=== PATIENT | male | born 1980 | race Caucasian/White ===

== ENCOUNTER 2020-03-10 08:16 | Emergency (ER) | payer BC, OTHER ==
[~2020-03-10] VITALS: Ht 157.5 cm; Wt 82.7 kg
[2020-03-10] MEDS ORDERED: NS 1,000 ML IV ONE (09:00)
[2020-03-10] MEDS ORDERED: KETOROLAC 30 MG/ML 1ML VIAL IV ONE (09:00)
[2020-03-10] MEDS ORDERED: ONDANSETRON 4MG/2ML VIAL IV ONE (09:00)
[2020-03-10 09:05] LABS: BASO # 0.1 10^3/uL (0.0-0.2); EOS # 0.2 10^3/uL (0.0-0.5); HEMATOCRIT 46.6 % (42.0-52.0); HEMOGLOBIN 15.3 g/dl (13.5-17.5); LYMPH # 2.4 10^3/uL (1.5-5.0); LYMPH % 33.7 % (24.0-44.0); MEAN CORPUSCULAR HEMOGLOBIN 28.2 pg (27.0-33.0); MEAN CORPUSCULAR HGB CONC 32.8 g/dl (32.0-36.5); MONO # 0.5 10^3/uL (0.0-0.8); MONO % 6.8 % (0.0-5.0); NEUTROPHILS # 3.9 10^3/uL (1.5-8.5); NEUTROPHILS % 54.3 % (36.0-66.0); PLATELET COUNT, AUTOMATED 269 10^3/uL (150-450); RED BLOOD COUNT 5.42 10^6/uL (4.30-6.10); WHITE BLOOD COUNT 7.2 10^3/uL (4.0-10.0)
[2020-03-10 09:33] LABS: ALBUMIN 4.2 GM/DL (3.2-5.2); ALT/SGPT 40 U/L (12-78); BILIRUBIN,DIRECT < 0.1 MG/DL (0.0-0.2); BILIRUBIN,TOTAL 0.3 MG/DL (0.2-1.0); BLOOD UREA NITROGEN 19 MG/DL (7-18); CALCIUM LEVEL 8.9 MG/DL (8.5-10.1); CARBON DIOXIDE LEVEL 26 MEQ/L (21-32); CHLORIDE LEVEL 107 MEQ/L (98-107); CREATININE FOR GFR 1.28 MG/DL (0.70-1.30); GLOMERULAR FILTRATION RATE > 60.0 (>60); GLUCOSE, FASTING 147 MG/DL (70-100); LIPASE 98 U/L (73-393); POTASSIUM SERUM 3.9 MEQ/L (3.5-5.1); SODIUM LEVEL 139 MEQ/L (136-145); TOTAL PROTEIN 7.3 GM/DL (6.4-8.2)
--- NOTE | 2020-03-10 09:38 | REP ---
INDICATION: right flank pain, renal colic. COMPARISON: NONE TECHNIQUE: RENAL STONE PROTOCOL WITH CORONAL AND SAGITTAL RECONSTRUCTIONS. FINDINGS: CT ABDOMEN: THE LUNG BASES ARE CLEAR. THE HEART IS UNREMARKABLE THERE IS NO PERICARDIAL THICKENING OR EFFUSION. SMALL HIATAL HERNIA NOTED. THERE IS MILD FATTY INFILTRATION OF THE LIVER BUT NO GROSS HEPATOMEGALY, SPLENOMEGALY OR FOCAL LESIONS. NO BILIARY DILATATION. GALLBLADDER WITHOUT CALCIFIED STONE OR MASS PANCREAS AND ADRENAL GLANDS ARE NORMAL. THERE ARE MULTIPLE PUNCTATE STONES IN THE KIDNEYS BILATERALLY IN THE 2-4 MM RANGE. NO CYST OR SOLID MASS. THERE IS MILD RIGHT HYDROURETER AND A 3 MM STONE IN THE DISTAL URETER ABOUT 2 CM ABOVE THE UVJ. THERE IS A NEARBY PELVIC PHLEBOLITH WHICH IS SMALLER. NO LEFT HYDRONEPHROSIS, HYDROURETER OR URETERAL STONE. SMALL BOWEL LOOPS AND COLON ARE UNREMARKABLE. NO PERFORATION OR FREE AIR IN THE ABDOMEN OR PELVIS. I SEE NO ASCITES. BONE WINDOWS SHOW THE LUMBAR AND LOWER THORACIC SPINE, VISUALIZED RIBS AND POSTERIOR ELEMENTS INTACT. CT PELVIS: THE BONY SACRUM, PELVIS AND HIPS ARE WITHOUT ACUTE FINDING. THE BLADDER HAS BEEN EMPTIED. NO STONES SEEN WITHIN IT. THE DISTAL LEFT URETER WAS UNREMARKABLE AND WITHOUT STONE. THE DISTAL RIGHT URETER HAS A 3 MM STONE ABOUT 2 CM FROM THE UVJ. NO VENTRAL OR INGUINAL HERNIA, INGUINAL OR PELVIC LYMPHADENOPATHY OR PELVIC MASS. IMPRESSION: 1. BILATERAL NEPHROLITHIASIS WITH STONES IN THE 2-4 MM RANGE IN BOTH KIDNEYS, MILD HYDRONEPHROSIS AND HYDROURETER ON THE RIGHT. THERE IS A DISTAL RIGHT URETERAL STONE ABOUT 3 MM AND 2 CM ABOVE THE UVJ. NONOBSTRUCTING LEFT STONES. 2. FATTY INFILTRATION OF THE LIVER WITHOUT HEPATOMEGALY. 3. NO OTHER SIGNIFICANT OR ACUTE FINDING. <Electronically signed by Steven Noguera > 03/10/20 0412
[2020-03-10] MEDS ORDERED: IBUP-1022 PO (10:06)
[2020-03-10] MEDS ORDERED: FLOM0.4C39 PO (10:06)
[2020-03-10] MEDS ORDERED: NORC1TAB7 PO (10:06)
[2020-03-10] MEDS ORDERED: ONDA4TAB6 PO (10:06)
[2020-03-10 10:28] VITALS: BP 131/87
== END 2020-03-10 10:31 | disposition home or self-care (01) ==
LOC: EDBD 08:16 → M ED 08:16
DX: N20.2 Calculus of kidney with calculus of ureter (principal); K76.0 Fatty (change of) liver, not elsewhere classified
CPT/HCPCS: 36415; 74176; 80048; 80076; 81001; 83690; 85025; 96361; 96374; 96375; 99284; J1885; J2405

== ENCOUNTER → 2020-03-20 | Outpatient (CLI) | payer SELFPAY ==
[~2020-03-20] MED LIST: FLOM0.4C39 PO; IBUP-1022 PO; NORC1TAB7 PO; ONDA4TAB6 PO
== END ==
LOC: M LABSMTC 12:21
PROVIDERS: ATTEND Pediatrics
DX: Z20.828 Contact with and (suspected) exposure to other viral communicable diseases (principal)

== ENCOUNTER → 2020-03-21 | Outpatient (REF) | payer SELFPAY ==
[2020-04-02 18:11] LABS: CA Oxalate Dihy 20 % (.); Ca Ox Monohydrate 80 % (.); Size 2x2 mm (.)
== END ==
LOC: M SMT 17:01
PROVIDERS: ATTEND Urology
DX: N20.0 Calculus of kidney (principal)

== ENCOUNTER → 2020-09-22 | Outpatient (CLI) | payer BC ==
--- NOTE | 2020-09-22 11:16 | REP ---
INDICATION: CALCULUS OF URETER *LABS 1ST, XRAY 2ND*. COMPARISON: Comparison CT study is from in 03/10/2020.. TECHNIQUE: Supine view of the abdomen. FINDINGS: Bowel gas pattern is normal. Psoas margins and flank stripes are intact. No mass, organomegaly, bowel dilation is seen. There are faint calcific densities overlying the left 12th rib in the lower pole left kidney consistent with intrarenal nephrolithiasis, 2-3 mm size. The right kidney is partially obscured by bowel gas. No other urinary tract calculus is seen. IMPRESSION: Suspect intrarenal nephrolithiasis lower pole left kidney. Right kidney partially obscured by bowel gas. <Electronically signed by Bacilio Omalley > 09/22/20 1113
== END ==
LOC: M RAD 10:21
PROVIDERS: ATTEND Urology
DX: N20.1 Calculus of ureter (principal)

== ENCOUNTER → 2020-09-22 | Outpatient (CLI) | payer BC ==
[2020-09-22 10:51] LABS: BASO # 0.1 10^3/uL (0.0-0.2); EOS # 0.3 10^3/uL (0.0-0.5); EOS % 4.6 % (0.0-3.0); HEMATOCRIT 45.6 % (42.0-52.0); HEMOGLOBIN 15.7 g/dl (13.5-17.5); LYMPH # 2.1 10^3/uL (1.5-5.0); MEAN CORPUSCULAR HEMOGLOBIN 29.5 pg (27.0-33.0); MEAN CORPUSCULAR HGB CONC 34.4 g/dl (32.0-36.5); MEAN CORPUSCULAR VOLUME 85.7 fl (80.0-96.0); MONO # 0.6 10^3/uL (0.0-0.8); MONO % 9.6 % (2.0-8.0); NEUTROPHILS # 2.9 10^3/uL (1.5-8.5); NEUTROPHILS % 49.1 % (36.0-66.0); PLATELET COUNT, AUTOMATED 271 10^3/uL (150-450); RED BLOOD COUNT 5.32 10^6/uL (4.30-6.10); WHITE BLOOD COUNT 5.9 10^3/uL (4.0-10.0)
[2020-09-22 11:19] LABS: ALT/SGPT 32 U/L (12-78); BILIRUBIN,TOTAL 0.5 MG/DL (0.2-1.0); BLOOD UREA NITROGEN 20 MG/DL (7-18); CALCIUM LEVEL 8.8 MG/DL (8.5-10.1); CARBON DIOXIDE LEVEL 26 MEQ/L (21-32); CHLORIDE LEVEL 108 MEQ/L (98-107); CHOLESTEROL LEVEL 240 MG/DL (<200); CHOLESTEROL RISK RATIO 5.333 (<5); CREATININE FOR GFR 1.02 MG/DL (0.70-1.30); FREE T4 0.91 NG/DL (0.76-1.46); GLOMERULAR FILTRATION RATE > 60.0 (>60); GLUCOSE, FASTING 91 MG/DL (70-100); HDL CHOLESTEROL 45 MG/DL (>40); LDL CHOLESTEROL 164 MG/DL (<100); NON-HDL-C 195 MG/DL; SODIUM LEVEL 140 MEQ/L (136-145); TOTAL PROTEIN 7.6 GM/DL (6.4-8.2); TRIGLYCERIDES LEVEL 155 MG/DL (<150)
[2020-09-22 11:53] LABS: HEMOGLOBIN A1c 5.6 %
== END ==
LOC: M LAB 10:18
PROVIDERS: ATTEND Physician Assistant
DX: Z00.00 Encounter for general adult medical examination without abnormal findings (principal); I10 Essential (primary) hypertension; Z13.0 Encounter for screening for diseases of the blood and blood-forming organs and certain disorders involving the immune mechanism; E66.8 Other obesity

== ENCOUNTER → 2021-04-17 | Outpatient (REF) | payer BC | LOC: M LAB REF 12:40 | PROVIDERS: ATTEND Family Medicine | DX: J06.9 Acute upper respiratory infection, unspecified (principal) ==

== ENCOUNTER → 2022-03-29 | Outpatient (CLI) | payer BC ==
[2022-03-29 11:59] LABS: BASO # 0.1 10^3/uL (0.0-0.2); BASO % 0.9 % (0.0-1.0); EOS # 0.4 10^3/uL (0.0-0.5); EOS % 5.8 % (0.0-3.0); HEMATOCRIT 47.1 % (42.0-52.0); HEMOGLOBIN 15.8 g/dl (13.5-17.5); LYMPH # 2.4 10^3/uL (1.5-5.0); LYMPH % 35.5 % (24.0-44.0); MEAN CORPUSCULAR HGB CONC 33.5 g/dl (32.0-36.5); MEAN CORPUSCULAR VOLUME 86.6 fl (80.0-96.0); MONO # 0.6 10^3/uL (0.0-0.8); MONO % 8.7 % (2.0-8.0); NEUTROPHILS # 3.3 10^3/uL (1.5-8.5); NEUTROPHILS % 48.7 % (36.0-66.0); PLATELET COUNT, AUTOMATED 261 10^3/uL (150-450); RED BLOOD COUNT 5.44 10^6/uL (4.30-6.10); WHITE BLOOD COUNT 6.7 10^3/uL (4.0-10.0)
[2022-03-29 12:54] LABS: ALBUMIN 4.3 G/DL (3.2-5.2); ALT/SGPT 29 U/L (7.0-40); BILIRUBIN,TOTAL 0.4 MG/DL (0.3-1.2); BLOOD UREA NITROGEN 20 MG/DL (9-23); CARBON DIOXIDE LEVEL 28 MMOL/L (20-31); CHLORIDE LEVEL 103 MMOL/L (98-107); CHOLESTEROL LEVEL 173 MG/DL (<200); CHOLESTEROL RISK RATIO 3.94 (<5); CREATININE FOR GFR 1.03 MG/DL (0.70-1.30); FREE T4 0.99 NG/DL (0.89-1.76); GLOMERULAR FILTRATION RATE > 60.0 (>60); GLUCOSE, FASTING 100 MG/DL (60-100); HDL CHOLESTEROL 43.8 MG/DL (>40); LDL CHOLESTEROL 96.8 MG/DL (<100); NON-HDL-C 129 MG/DL; POTASSIUM SERUM 4.2 MMOL/L (3.5-5.1); SODIUM LEVEL 140 MMOL/L (136-145); THYROID STIMULATING HORMONE 1.344 uIU/ML (0.55-4.78); TOTAL 25(OH) VITAMIN D 12.7 NG/ML (20.0-100.0); TOTAL PROTEIN 7.4 G/DL (5.7-8.2); TRIGLYCERIDES LEVEL 162 MG/DL (<150)
[2022-03-29 13:59] LABS: HEMOGLOBIN A1c 5.4 % (4.0-6.0)
== END ==
LOC: M LAB 11:38
PROVIDERS: ATTEND Physician Assistant
DX: E78.00 Pure hypercholesterolemia, unspecified (principal); Z13.29 Encounter for screening for other suspected endocrine disorder; I10 Essential (primary) hypertension

== ENCOUNTER → 2023-06-28 | Outpatient (CLI) | payer BC ==
[2023-06-28 09:22] LABS: BASO % 0.6 % (0.0-1.0); EOS # 0.3 10^3/uL (0.0-0.5); EOS % 4.8 % (0.0-3.0); HEMATOCRIT 44.9 % (42.0-52.0); HEMOGLOBIN 15.6 g/dl (13.5-17.5); LYMPH # 2.1 10^3/uL (1.5-5.0); LYMPH % 33.9 % (24.0-44.0); MEAN CORPUSCULAR HEMOGLOBIN 30.1 pg (27.0-33.0); MEAN CORPUSCULAR HGB CONC 34.7 g/dl (32.0-36.5); MEAN CORPUSCULAR VOLUME 86.5 fl (80.0-96.0); MONO # 0.5 10^3/uL (0.0-0.8); MONO % 8.6 % (2.0-8.0); NEUTROPHILS # 3.2 10^3/uL (1.5-8.5); NEUTROPHILS % 51.1 % (36.0-66.0); PLATELET COUNT, AUTOMATED 265 10^3/uL (150-450); RED BLOOD COUNT 5.19 10^6/uL (4.30-6.10); WHITE BLOOD COUNT 6.3 10^3/uL (4.0-10.0)
[2023-06-28 09:45] LABS: ALBUMIN 4.1 G/DL (3.2-5.2); ALKALINE PHOSPHATASE 53 U/L (46-116); ALT/SGPT 52 U/L (7.0-40); AST/SGOT 26 U/L (<34); BILIRUBIN,TOTAL 0.5 MG/DL (0.3-1.2); BLOOD UREA NITROGEN 20 MG/DL (9-23); CARBON DIOXIDE LEVEL 31 MMOL/L (20-31); CHLORIDE LEVEL 108 MMOL/L (98-107); CHOLESTEROL LEVEL 194 MG/DL (<200); CHOLESTEROL RISK RATIO 4.88 (<5); CREATININE FOR GFR 1.01 MG/DL (0.70-1.30); GLOMERULAR FILTRATION RATE > 60.0 (>60); GLUCOSE, FASTING 100 MG/DL (60-100); HDL CHOLESTEROL 39.7 MG/DL (>40); LDL CHOLESTEROL 118.7 MG/DL (<100); NON-HDL-C 154.3 MG/DL; SODIUM LEVEL 142 MMOL/L (136-145); TOTAL PROTEIN 7.1 G/DL (5.7-8.2); TRIGLYCERIDES LEVEL 178 MG/DL (<150)
[2023-06-28 09:46] LABS: THYROID STIMULATING HORMONE 0.983 uIU/ML (0.55-4.78); TOTAL 25(OH) VITAMIN D 86.5 NG/ML (20.0-100.0)
[2023-06-28 09:47] LABS: FREE T4 1.05 NG/DL (0.89-1.76)
== END ==
LOC: M LAB 08:53
PROVIDERS: ATTEND Family Medicine
DX: I10 Essential (primary) hypertension (principal); E55.9 Vitamin D deficiency, unspecified; E78.00 Pure hypercholesterolemia, unspecified; Z13.29 Encounter for screening for other suspected endocrine disorder

== ENCOUNTER → 2023-07-16 | Outpatient (CLI) | payer BC | LOC: M SLEEP HO 10:57 | PROVIDERS: ATTEND Physician Assistant | DX: G47.19 Other hypersomnia (principal) ==

== ENCOUNTER → 2024-12-12 | Outpatient (REF) | payer BC ==
[~2024-12-12] MED LIST changes: -FLOM0.4C39 PO; +ONDA-282 PO; -ONDA4TAB6 PO; +TAMS-18 PO
== END ==
LOC: M LAB REF 16:52
PROVIDERS: ATTEND Family Medicine
DX: N23 Unspecified renal colic (principal)

== ENCOUNTER → 2024-12-12 | Outpatient (CLI) | payer BC ==
[~2024-12-12] MED LIST changes: -IBUP-1022 PO; +IBUP600T42 PO; +ISOVUE-370 76% 100 ML VIAL As Ordered ONE
[2024-12-12 15:59] LABS: BASO # 0.1 10^3/uL (0.0-0.2); BASO % 0.4 % (0.0-1.0); EOS # 0.1 10^3/uL (0.0-0.5); EOS % 0.9 % (0.0-3.0); LYMPH # 1.3 10^3/uL (1.5-5.0); LYMPH % 9.6 % (24.0-44.0); MONO # 0.7 10^3/uL (0.0-0.8); MONO % 5.3 % (2.0-8.0); NEUTROPHILS # 11.4 10^3/uL (1.5-8.5); NEUTROPHILS % 83.3 % (36.0-66.0); PLATELET COUNT, AUTOMATED 279 10^3/uL (150-450)
[2024-12-12 16:35] LABS: ALT/SGPT 61.0 U/L (7.0-40); AST/SGOT 34.0 U/L (<34); CALCIUM LEVEL 10.3 MG/DL (8.5-10.1); CARBON DIOXIDE LEVEL 31.0 MMOL/L (20-31); CHLORIDE LEVEL 102.0 MMOL/L (98-107); CREATININE FOR GFR 1.18 MG/DL (0.70-1.30); GLOMERULAR FILTRATION RATE 77.6 (>60); POTASSIUM SERUM 4.4 MMOL/L (3.5-5.1); SODIUM LEVEL 144.0 MMOL/L (136-145)
[2024-12-13 11:07] LABS: PTH INTACT 19.6 PG/ML (18.5-88.0)
== END ==
LOC: M RAD 15:36
PROVIDERS: ATTEND Family Medicine
DX: N13.2 Hydronephrosis with renal and ureteral calculous obstruction (principal); R10.31 Right lower quadrant pain; E83.52 Hypercalcemia
CPT/HCPCS: 36415; 74177; 80053; 83970; 85025; 87086; Q9967

== ENCOUNTER 2025-03-08 12:02 | Day surgery (SDC) | payer BC ==
[~2025-03-08] VITALS: Ht 162.6 cm; Wt 79.0 kg
[~2025-03-08 12:02] MED LIST changes: +ADDE20CA3 PO; +CHOL50003 PO; +HYDR12.55 PO; -ISOVUE-370 76% 100 ML VIAL As Ordered ONE; +ROSU10TA90 PO; +VALS1TAB68 PO
[2025-03-08] MEDS ORDERED: LIDOCAINE 2% 100 MG/5 ML SDV (FOR ANES.) As Ordered ONE (12:32)
[2025-03-08 13:20] VITALS: TEMP 97.7
[2025-03-08 13:40] VITALS: BP 105/65; O2SAT 96
== END 2025-03-08 13:41 | disposition home or self-care (01) ==
LOC: M OPP 12:02
PROVIDERS: ATTEND Surgery
DX: Z12.11 Encounter for screening for malignant neoplasm of colon (principal); K63.5 Polyp of colon; G47.30 Sleep apnea, unspecified; Z79.899 Other long term (current) drug therapy